=== PATIENT | male | born 1970 | race Caucasian/White ===

== ENCOUNTER 2020-03-06 | Emergency (ER) | payer OTHER ==
[~2020-03-06] MED LIST: AF-MIGRAIN1 PO; CELEXA40 MG PO; CLARITIN10 MG PO; DILANTIN100 MG; DILANTIN100 MG PO; ISMO20 MG PO; LEVOTHYROXIN PO; LEVOTHYROXIN100 MCG PO; LEVOTHYROXIN50 MCG PO; LITHIUM CARB300 MG PO; NEURONTIN300 MG PO; PERPHENAZINE8 MG PO; SIMVASTATIN40 MG PO; TEGRETOL200 MG PO; VASOTEC5 MG PO; WELLBUTRIN SR150 MG PO; ZOCOR20 MG PO
[2020-03-06 21:20] LABS: IMMATURE GRANULOCYTES 0.4 % (0.0-5.0); MEAN CELL VOLUME 90.9 fL CALC (80.0-100.0); MEAN CORPUSCULAR HGB 31.1 pG CALC (26.0-32.0); MEAN CORPUSCULAR HGB CONC 34.2 g/dL CAL (32.0-36.0); NEUT# 3.01 thou/uL (1.82-7.42); RED BLOOD COUNT 4.18 mill/uL (4.70-6.10); RED CELL DISTRI WIDTH 12.6 % (11.5-15.5)
[2020-03-06 21:27] LABS: ALBUMIN 4.2 g/dL (3.2-5.0); BILIRUBIN, TOTAL 0.3 mg/dL (0.0-1.4); BUN 17 mg/dL (9-20); BUN/CREATININE RATIO 25 (12-20 (CALC)); CHLORIDE 107 mmol/l (95-108); CREATININE 0.7 mg/dL (0.7-1.3); GFR > 60 ML/MIN (>=60 (CALC)); GFR FOR AFR.AMER. > 60 ML/MIN (>=60 (CALC)); LIPASE 95 u/l (23-300); POTASSIUM 4.6 mmol/l (3.5-5.1); SGOT/AST 15 u/l (17-59); SODIUM 136 mmol/l (137-146); TOTAL PROTEIN 6.8 g/dL (6.3-8.2)
[2020-03-06 21:29] LABS: ALKALINE PHOSPHATASE 106 u/l (38-126); AMYLASE < 30 u/l (30-110); ANION GAP 12 (6-22 (CALC)); CARBON DIOXIDE 22 mmol/l (22-30)
[2020-03-06 21:39] LABS: MYOGLOBIN 40 ng/mL (0 - 121)
[2020-03-06 21:43] LABS: ACT PARTIAL THROMBO TIME 24.8 SECONDS (20.0-32.5); D-DIMER 0.17 mg/L (0.19-0.60); PROTHROMBIN TIME 10.7 SECONDS (9.0-12.5)
[2020-03-06] MEDS ORDERED: TORADOL PO (22:27)
[2020-03-06] MEDS ORDERED: LOPID600 MG PO (22:32)
[2020-03-06] MEDS ORDERED: DIPHENHYDRAM50 M2 PO (22:38)
[2020-03-06] MEDS ORDERED: LISINOPRIL10 MG PO (22:39)
--- NOTE | 2020-03-09 07:09 | NUR ---
Covid test results (Negative) faxed to [facility] secure fax [phone]. Left message that results were faxed at [phone].
== END 2020-03-06 22:50 | disposition designated cancer center or children's hospital (05) | DRG 313 ==
PROVIDERS: Family Medicine
DX: R07.89 Other chest pain (principal); I10 Essential (primary) hypertension; Z20.828 Contact with and (suspected) exposure to other viral communicable diseases

== ENCOUNTER 2022-01-13 20:21 | Emergency (ER) | payer OTHER ==
[~2022-01-13] VITALS: Ht 175.3 cm; Wt 79.0 kg
[~2022-01-13 20:21] MED LIST changes: +DIPHENHYDRAM50 M2 PO; +LISINOPRIL10 MG PO; +LOPID600 MG PO; +TORADOL PO
[2022-01-13 21:08] LABS: HEMATOCRIT 38.7 % (39.0-50.0); HEMOGLOBIN 13.2 g/dl (14.0-18.0); IMMATURE GRANULOCYTES 0.5 % (0.0-5.0); MEAN CELL VOLUME 93.3 fL CALC (80.0-100.0); MEAN CORPUSCULAR HGB 31.8 pG CALC (26.0-32.0); MEAN CORPUSCULAR HGB CONC 34.1 g/dL CAL (32.0-36.0); NEUT# 2.86 thou/uL (1.82-7.42); RED BLOOD COUNT 4.15 mill/uL (4.70-6.10); RED CELL DISTRI WIDTH 12.4 % (11.5-15.5)
[2022-01-13 21:26] LABS: ALBUMIN 3.6 g/dL (3.2-5.0); BILIRUBIN, TOTAL 0.2 mg/dL (0.0-1.4); BUN 17 mg/dL (9-20); BUN/CREATININE RATIO 22 (12-20 (CALC)); CARBON DIOXIDE 25 mmol/l (22-30); CHLORIDE 107 mmol/l (95-108); CREATININE 0.8 mg/dL (0.7-1.3); GFR > 60 ML/MIN (>=60 (CALC)); GFR FOR AFR.AMER. > 60 ML/MIN (>=60 (CALC)); SGOT/AST 21 u/l (17-59); SODIUM 139 mmol/l (137-146); TOTAL PROTEIN 5.8 g/dL (6.3-8.2)
[2022-01-13 21:28] LABS: ALKALINE PHOSPHATASE 48 u/l (38-126); ANION GAP 11 (6-22 (CALC)); POTASSIUM 3.6 mmol/l (3.5-5.1)
[2022-01-13 21:38] LABS: MYOGLOBIN 38 ng/mL (0 - 121)
[2022-01-13 23:55] LABS: URINE BILIRUBIN - DIPSTICK NEGATIVE (NEGATIVE); URINE BLOOD DIPSTICK NEGATIVE (NEGATIVE); URINE COLOR YELLOW; URINE GLUCOSE - DIPSTICK NEGATIVE (NEGATIVE); URINE KETONE NEGATIVE (NEGATIVE); URINE LEUK ESTERASE NEGATIVE (NEGATIVE); URINE PH 6.5 (4.5-8.0); URINE PROTEIN - DIPSTICK NEGATIVE (NEG-TRACE); URINE SPECIFIC GRAVITY 1.015; URINE UROBILINOGEN - DIPSTICK 0.2 E.U./dL (0.2)
[2022-01-14] LABS: URINE NITRITE - DIPSTICK NEGATIVE (Negative)
[2022-01-14 01:54] VITALS: BP 125/81
== END 2022-01-14 02:04 | disposition designated cancer center or children's hospital (05) | DRG 313 ==
LOC: ED 20:21
PROVIDERS: Emergency Medicine
DX: R07.89 Other chest pain (principal); I10 Essential (primary) hypertension; E03.9 Hypothyroidism, unspecified

== ENCOUNTER 2022-05-08 13:24 | Observation (INO) | payer OTHER ==
[~2022-05-08] VITALS: Ht 175.3 cm; Wt 75.0 kg
[~2022-05-08 13:24] MED LIST changes: -DILANTIN100 MG PO; +PHENYTOIN EX100 M1 PO
[2022-05-08 13:52] LABS: HEMATOCRIT 43.8 % (39.0-50.0); HEMOGLOBIN 14.8 g/dl (14.0-18.0); IMMATURE GRANULOCYTES 0.6 % (0.0-5.0); MEAN CELL VOLUME 91.8 fL CALC (80.0-100.0); MEAN CORPUSCULAR HGB CONC 33.8 g/dL CAL (32.0-36.0); NEUT# 3.94 thou/uL (1.82-7.42); RED BLOOD COUNT 4.77 mill/uL (4.70-6.10)
[2022-05-08 14:07] LABS: ALBUMIN 4.1 g/dL (3.2-5.0); ALKALINE PHOSPHATASE 55 u/l (38-126); ANION GAP 10 (6-22 (CALC)); BUN 13 mg/dL (9-20); BUN/CREATININE RATIO 17 (12-20 (CALC)); CARBON DIOXIDE 27 mmol/l (22-30); CHLORIDE 104 mmol/l (95-108); CREATININE 0.7 mg/dL (0.7-1.3); GFR FOR AFR.AMER. > 60 ML/MIN (>=60 (CALC)); GFR OTHER RACES > 60 ML/MIN (>=60 (CALC)); POTASSIUM 3.3 mmol/l (3.5-5.1); SGOT/AST 19 u/l (17-59); SODIUM 138 mmol/l (137-146); TOTAL PROTEIN 6.5 g/dL (6.3-8.2)
[2022-05-08 14:08] LABS: BILIRUBIN, TOTAL 0.3 mg/dL (0.0-1.4)
[2022-05-08] MEDS ORDERED: CVS SENNA8.6 MG PO (16:39)
[2022-05-08] MEDS ORDERED: PERPHENAZINE8 MG PO (16:40)
[2022-05-08] MEDS ORDERED: ATORVASTATIN CA20 MG PO (16:44)
[2022-05-08] MEDS ORDERED: NITROSTAT0.4 MG PO (16:45)
[2022-05-08] MEDS ORDERED: VENTOLIN HFA IN (16:45)
[2022-05-08] MEDS ORDERED: AF-MIGRAIN1 PO (16:46)
[2022-05-08] MEDS ORDERED: LACTULOSE10 GM/15 M PO (16:46)
[2022-05-08 18:58] VITALS: BP 107/68
[2022-05-09 00:26] VITALS: BP 114/53
[2022-05-09 03:43] LABS: ANION GAP 8 (6-22 (CALC)); BUN 10 mg/dL (9-20); BUN/CREATININE RATIO 14 (12-20 (CALC)); CALCULATED LDLCHOLESTEROL 68 mg/dL (62-129 (CALC)); CARBON DIOXIDE 26 mmol/l (22-30); CHLORIDE 107 mmol/l (95-108); CHOLESTEROL HDL RATIO 3.6 (<4.4 (CALC)); CREATININE 0.7 mg/dL (0.7-1.3); GFR FOR AFR.AMER. > 60 ML/MIN (>=60 (CALC)); GFR OTHER RACES > 60 ML/MIN (>=60 (CALC)); HDL CHOLESTEROL 33 mg/dL (>=40); MAGNESIUM 2.1 mg/dL (1.6-2.3); SODIUM 137 mmol/l (137-146); TOTAL CHOLESTEROL 120 mg/dl (0-199); TOTAL TRIGLYCERIDES 92 mg/dl (30-149); VLDL CHOLESTROL 18 mg/dl (8-62 (CALC))
[2022-05-09 03:44] LABS: POTASSIUM 4.1 mmol/l (3.5-5.1)
[2022-05-09 04:11] VITALS: BP 107/64
[2022-05-09 07:29] VITALS: BP 123/76
[2022-05-09 08:00] VITALS: BP 123/76
[2022-05-09 10:49] VITALS: BP 127/82
[2022-05-11] MEDS ORDERED: KEFLEX500 MG PO (18:17)
== END 2022-05-09 13:00 | disposition designated cancer center or children's hospital (05) | DRG 313 ==
LOC: ED 13:24 → ED-I 15:21 → ED 15:32 → MS2 15:33
PROVIDERS: Family Medicine; ADMIT Internal Medicine; ATTEND Internal Medicine
DX: R07.9 Chest pain, unspecified (principal); E03.9 Hypothyroidism, unspecified; F31.9 Bipolar disorder, unspecified; F65.4 Pedophilia; Z87.891 Personal history of nicotine dependence; Z20.822 Contact with and (suspected) exposure to COVID-19
CPT/HCPCS: G0378; J1650

== ENCOUNTER → 2022-05-11 | Emergency (ER) | payer OTHER ==
[~2022-05-11] VITALS: Ht 175.3 cm; Wt 72.7 kg
[~2022-05-11] MED LIST changes: +ATORVASTATIN CA20 MG PO; +CVS SENNA8.6 MG PO; +KEFLEX500 MG PO; +LACTULOSE10 GM/15 M PO; +NITROSTAT0.4 MG PO; +VENTOLIN HFA IN
[2022-05-11 16:02] LABS: HEMATOCRIT 43.7 % (39.0-50.0); IMMATURE GRANULOCYTES 0.3 % (0.0-5.0); MEAN CELL VOLUME 89.5 fL CALC (80.0-100.0); MEAN CORPUSCULAR HGB 30.7 pG CALC (26.0-32.0); MEAN CORPUSCULAR HGB CONC 34.3 g/dL CAL (32.0-36.0); NEUT# 5.05 thou/uL (1.82-7.42); RED BLOOD COUNT 4.88 mill/uL (4.70-6.10)
[2022-05-11 16:18] LABS: PROTHROMBIN TIME 10.1 SECONDS (9.0-12.5)
[2022-05-11 16:22] LABS: ALBUMIN 4.3 g/dL (3.2-5.0); ALKALINE PHOSPHATASE 82 u/l (38-126); ANION GAP 13 (6-22 (CALC)); BILIRUBIN, TOTAL 0.2 mg/dL (0.0-1.4); BUN 15 mg/dL (9-20); BUN/CREATININE RATIO 21 (12-20 (CALC)); CARBON DIOXIDE 27 mmol/l (22-30); CHLORIDE 102 mmol/l (95-108); CREATININE 0.7 mg/dL (0.7-1.3); GFR FOR AFR.AMER. > 60 ML/MIN (>=60 (CALC)); GFR OTHER RACES > 60 ML/MIN (>=60 (CALC)); POTASSIUM 4.5 mmol/l (3.5-5.1); SGOT/AST 18 u/l (17-59); SODIUM 137 mmol/l (137-146); TOTAL PROTEIN 6.6 g/dL (6.3-8.2)
[2022-05-11 18:28] VITALS: BP 132/77
== END | disposition designated cancer center or children's hospital (05) | DRG 605 ==
LOC: ED 15:11
PROVIDERS: Nurse Practitioner
PROC: 0HQDXZZ Repair Right Lower Arm Skin, External Approach (ICD-10-PCS; principal; 2022-05-11)
DX: S51.811A Laceration without foreign body of right forearm, initial encounter (principal); F44.81 Dissociative identity disorder; I10 Essential (primary) hypertension; E03.9 Hypothyroidism, unspecified; X78.9XXA Intentional self-harm by unspecified sharp object, initial encounter; Y92.149 Unspecified place in prison as the place of occurrence of the external cause

== ENCOUNTER 2023-12-10 07:43 | Day surgery (SDC) | payer OTHER ==
[~2023-12-10] VITALS: Ht 175.3 cm; Wt 98.9 kg
[~2023-12-10 07:43] MED LIST changes: +LASIX 40 MG TAB40 MG PO; +LEXAPRO20 MG PO; +METOPROL TAR25 MG PO; +NITROSTAT0.4 MG SL; +OLANZAPINE ODT10 MG PO; +OMEGA 31000 MG PO; +TRIHEXYPHENIDYL5 MG PO; +VENTOLIN HFA108 MCG IN; +VITAMIN D31000 UNI1 PO
[2023-12-10] MEDS ORDERED: PERCOCET 5/325M1 TAB PO (08:30)
[2023-12-10 12:10] VITALS: BP 118/82
== END 2023-12-10 12:20 | disposition home or self-care (01) | DRG 352 ==
LOC: ORM 07:43
PROVIDERS: ATTEND Surgery
PROC: 0YUA4JZ Supplement Bilateral Inguinal Region with Synthetic Substitute, Percutaneous Endoscopic Approach (ICD-10-PCS; principal; 2023-12-10)
PROC: 0WUF0JZ Supplement Abdominal Wall with Synthetic Substitute, Open Approach (ICD-10-PCS; 2023-12-10)
DX: K40.20 Bilateral inguinal hernia, without obstruction or gangrene, not specified as recurrent (principal); K42.9 Umbilical hernia without obstruction or gangrene; I10 Essential (primary) hypertension; E03.9 Hypothyroidism, unspecified; Z87.891 Personal history of nicotine dependence
CPT/HCPCS: C1781; J0131; J0690; J1100; J2710